=== PATIENT | male | born 1950 | race Caucasian/White ===

== ENCOUNTER 2018-06-29 23:50 | Emergency (ER) | payer OTHER, MEDICARE, BC ==
[2018-06-30] MEDS ORDERED: DIPH,PERTUS(ACELL)TETVAC-LF 0.5 ML VIAL IM ONE (00:06)
[2018-06-30] MEDS ORDERED: SODIUM CHLORIDE 0.9% 500 ML 500 ML IV STA (00:06)
[2018-06-30 00:14] LABS: Glucose,Whole Blood 119 mg/dL (75-99)
[2018-06-30 00:15] VITALS: BP 156/98; PULSE 80; RESP 21; TEMP 97.3
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
[2018-06-30 00:40] LABS: Basophils # (A) 0.1 k/uL (0-0.2); Basophils % (A) 1 %; Eosinophils # (A) 0.4 k/uL (0-0.7); Eosinophils % (A) 4 %; HCT 40.1 % (39.0-53.0); HGB 14.1 gm/dL (13.0-17.5); Lymphocytes # (A) 3.7 k/uL (1.0-4.8); Lymphocytes % (A) 38 %; MCH 34.6 pg (25.0-35.0); MCHC 35.1 g/dL (31.0-37.0); MCV 98.5 fL (80.0-100.0); Mean Platelet Volume 6.4; Monocytes # (A) 0.5 k/uL (0-1.0); Monocytes % (A) 5 %; Neutrophils # (A) 4.8 k/uL (1.3-7.7); Neutrophils % (A) 49 %; Platelet Count 447 k/uL (150-450); RBC 4.08 m/uL (4.30-5.90); RDW 12.5 % (11.5-15.5); WBC 9.8 k/uL (3.8-10.6)
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
[2018-06-30 00:51] LABS: ALT 35 U/L (21-72); AST 38 U/L (17-59); Albumin 4.2 g/dL (3.5-5.0); Alkaline Phosphatase 51 U/L (38-126); Amylase 59 U/L (30-110); Anion Gap 10 mmol/L; Blood Urea Nitrogen 13 mg/dL (9-20); Calcium 8.8 mg/dL (8.4-10.2); Carbon Dioxide 24 mmol/L (22-30); Chloride 104 mmol/L (98-107); Glucose 109 mg/dL (74-99); Lipase 123 U/L (23-300); Potassium 4.4 mmol/L (3.5-5.1); Sodium 138 mmol/L (137-145); Total Bilirubin 0.7 mg/dL (0.2-1.3)
[2018-06-30 00:54] LABS: Alcohol 194 mg/dL
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
[2018-06-30 01:09] LABS: Partial Thromboplastin Time 22.3 sec (22.0-30.0); Prothrombin Time 11.1 sec (9.0-12.0)
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
[2018-06-30 01:15] LABS: Creatine Kinase 517 U/L (55-170)
[2018-06-30 01:28] LABS: Creatine Kinase MB 7.4 ng/mL (0.0-2.4); Troponin I <0.012 ng/mL (0.000-0.034)
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
== END 2018-06-30 02:21 | disposition other institution (70) ==
LOC: EC 23:50
DX: R20.2 Paresthesia of skin (principal); M79.602 Pain in left arm; M79.601 Pain in right arm; S00.81XA Abrasion of other part of head, initial encounter; S00.01XA Abrasion of scalp, initial encounter; Z88.5 Allergy status to narcotic agent; Z88.6 Allergy status to analgesic agent; Z98.1 Arthrodesis status; V48.5XXA Car driver injured in noncollision transport accident in traffic accident, initial encounter; Y92.410 Unspecified street and highway as the place of occurrence of the external cause
CPT/HCPCS: 36415; 86900; 86901; 80053; 82150; 82550; 82553; 83605; 83690; 84484; 85025; 85610; 85730; 86850; 80320; 72170; 71045; 72125; 70486; 70450; 71260; 74177; 99285; Q9967

== ENCOUNTER → 2019-05-24 | Outpatient (CLI) | payer OTHER, MEDICARE, BC ==
--- NOTE | 2019-05-24 15:15 | MR ---
EXAMINATION TYPE: MR shoulder LT wo con DATE OF EXAM: 05/24/2019 COMPARISON: None HISTORY: Left shoulder pain TECHNIQUE: Multiplanar, multisequence imaging of the none shoulder is performed without contrast. FINDINGS: The exam is nondiagnostic given uncontrollable spasms. Prior rotator cuff repair surgical a nchors are seen. Small left joint effusion is present. Fluid is seen above the humeral head and the a cromio humeral interval suggesting full-thickness re-tear however the rotator cuff is not clearly vis ualized. Osteophytes are seen of the glenohumeral joint and there is a high riding humerus. Osteophyt es are also seen of the acromioclavicular joint. IMPRESSION: Overall nondiagnostic exam secondary to uncontrollable spasms and extensive patient motio n. Repeat imaging could be performed with sedation if necessary. Fluid in the acromioclavicular inter tequila and high riding left humeral head to suggest full-thickness re-tear as there are humeral anchors from prior rotator cuff repair.
--- NOTE | 2019-05-24 15:29 | MR ---
EXAMINATION TYPE: MR shoulder RT wo con DATE OF EXAM: 05/24/2019 COMPARISON: None HISTORY: Right shoulder pain TECHNIQUE: Multiplanar, multisequence imaging of the right shoulder is performed without contrast. FINDINGS: The exam is markedly limited secondary to patient motion. Rotator Cuff: There is a high riding humeral head secondary to complete tear of the supraspinatus. Re traction of the supraspinatus is measured at 4.5 cm and there is some muscular atrophy. Muscular atro phy is also seen of the infraspinatus with the anterior fibers infraspinatus also appear grossly torn however mid fibers and posterior fibers appear intact. Teres minor appears intact. There appears to be complete tear of the subscapularis with retraction of approximately 3 cm. Acromioclavicular Joint: Moderate acromioclavicular arthropathy with capsular hypertrophy and margina l osteophytes. These appear downsloping. Glenohumeral Joint: High right humeral head and marginal osteophytes of the glenohumeral joint with c hondral irregularity. Moderate arthropathy. Labrum: Markedly limited due to patient motion. At least global degeneration. Biceps Tendon: The long head of biceps is in normal location within bicipital groove. Suboptimal visu alization of the intra-articular portion. Bone marrow signal: No focal abnormal marrow signal is appreciated. Other: Small joint effusion. IMPRESSION: Marked limited evaluation given extensive patient motion. 1. Given the limitations there is a complete tear of the supraspinatus with high right humeral head. Muscular atrophy is seen and 4.5 cm retraction is noted. 2. Full-thickness tear of the anterior fibers of infraspinatus, suboptimally viewed given extensive m otion. Mid and posterior fibers appear intact. 3. Complete tear of the subscapularis with 3 cm retraction. 4. Moderate acromioclavicular arthropathy, moderate glenohumeral arthropathy, small joint effusion, a nd at least global degeneration of the labrum.
== END | disposition home or self-care (01) ==
LOC: RADMRIMAIN 11:01
PROVIDERS: ATTEND Physical Medicine & Rehabilitation
DX: M25.512 Pain in left shoulder (principal); S43.422D Sprain of left rotator cuff capsule, subsequent encounter

== ENCOUNTER → 2021-01-13 | Outpatient (CLI) | payer OTHER ==
--- NOTE | 2021-01-13 13:09 | XR ---
EXAMINATION TYPE: XR cervical spine w flex/ext DATE OF EXAM: 01/13/2021 COMPARISON: CT scan 06/30/2018 HISTORY: Postop TECHNIQUE: Frontal and lateral, bilateral oblique, flexion extension lateral views and odontoid views submitted. FINDINGS: Extensive postsurgical changes are seen. Odontoid view is suboptimal. Extensive fusion involving the cervical thoracic junction. Cannot exclude an anterolisthesis at the cervical thoracic junction appea rs to been present on the prior CT scan of 06/30/2018. Suspect multilevel bilateral foraminal encroac hment. IMPRESSION: 1. Limited exam particularly at the cervical thoracic junction demonstrates extensive postsurgical ch anges with suspected foraminal encroachment at multiple levels. Recommend follow-up CT scan.
== END | disposition home or self-care (01) ==
LOC: RADXRMAIN 12:15
PROVIDERS: ATTEND Neurological Surgery
DX: Z47.89 Encounter for other orthopedic aftercare (principal); Z98.1 Arthrodesis status
CPT/HCPCS: 72052

== ENCOUNTER 2021-03-06 15:52 | Emergency (ER) | payer OTHER, BC, MEDICARE ==
[2021-03-06 16:07] VITALS: BP 133/71; PULSE 71; RESP 18; TEMP 98.2
--- NOTE | 2021-03-06 17:07 | XR ---
EXAMINATION TYPE: XR humerus RT DATE OF EXAM: 03/06/2021 COMPARISON: NONE HISTORY: Pain TECHNIQUE: 4 views FINDINGS: There is right shoulder prosthesis. Components appear in good position. There is spiral fracture of the mid shaft of the humerus. There is fairly normal alignment of the fr agments. There is separation up to 14 mm of the fragments distally. The elbow joint is not well seen but appears grossly intact. IMPRESSION: Acute spiral fracture of the mid shaft of the humerus.
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
--- NOTE | 2021-03-06 18:26 | ED ---
Upper Extremity HPI - General Chief Complaint: Extremity Injury, Upper Stated Complaint: PostOP/Rt Shoulder Injury Time Seen by Provider: 03/06/21 17:41 Source: patient, family Mode of arrival: wheelchair - History of Present Illness Initial Comments: 70-year-old male patient presents to the emergency department today for evaluation of right upper arm pain after a fall. Patient states he was coming down the stairs backwards missed the last step and fell. Patient states he braced himself with his right arm causing injury. Denies hitting his head or losing consciousness. Denies any neck or back pain. 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 Quigley. Patient states he is not having any new numbness or tingling to the arm. Patient denies any headache, chest pain, shortness of breath, dizziness, weakness, abdominal pain, nausea, vomiting, or difficulties with bowel movements or urination. Does not take any blood thinning medications. - Related Data Allergies Allergy/AdvReac Type Severity Reaction Status Date / Time acetaminophen [From Vicodin] Allergy Unknown Verified 03/06/21 16:07 hydrocodone [From Vicodin] Allergy Unknown Verified 03/06/21 16:07 Review of Systems ROS Statement: Those systems with pertinent positive or pertinent negative responses have been documented in the HPI. ROS Other: All systems not noted in ROS Statement are negative. Past Medical History Past Medical History: Hypertension Additional Past Medical History / Comment(s): restless leg syndrome History of Any Multi-Drug Resistant Organisms: None Reported Past Surgical History: Joint Replacement Additional Past Surgical History / Comment(s): colonoscopy, rt shoulder Past Psychological History: No Psychological Hx Reported Smoking Status: Never smoker Past Alcohol Use History: Occasional Past Drug Use History: None Reported General Exam General appearance: alert, in no apparent distress, other (Physical well-de veloped, well-nourished adult male patient in no acute distress. Vital signs upon presentation are temperature 98.2F, pulse 71, respirations 18, blood pressure 133/71, pulse ox 97% on room air.) ENT exam: Present: normal exam, normal oropharynx, mucous membranes moist Neck exam: Present: normal inspection, full ROM, other (Nontender, no step-off, no deformity to firm midline palpation of the posterior cervical spine. Full range of motion without pain or limitation.). Absent: tenderness, meningismus, lymphadenopathy Respiratory exam: Present: normal lung sounds bilaterally. Absent: respiratory distress, wheezes, rales, rhonchi, stridor Cardiovascular Exam: Present: regular rate, normal rhythm, normal heart sounds. Absent: systolic murmur, diastolic murmur, rubs, gallop, clicks GI/Abdominal exam: Present: soft, normal bowel sounds. Absent: distended, tenderness, guarding, rebound, rigid Extremities exam: Present: full ROM, tenderness (Right Upper arm), normal capillary refill, other (Skin to the right arm is pink, warm, dry. Cap refill less than 3 seconds. Radial pulses 2+.). Absent: pedal edema, joint swelling, calf tenderness Neurological exam: Present: alert, oriented X3, CN II-XII intact Psychiatric exam: Present: normal affect, normal mood Skin exam: Present: warm, dry, intact, normal color. Absent: rash Course Vital Signs 03/06/21 16:02 Temperature 98.2 F Pulse Rate 71 Respiratory 18 Rate Blood Pressure 133/71 O2 Sat by Pulse 97 Oximetry - Reevaluation(s) Reevaluation #1: 03/06/21 18:26 Patient refused pain medication multiple times throughout visit. Stated he was not having any pain unless he moves the arm. States he has percocet at home he would rather take. Medical Decision Making - Medical Decision Making 70-year-old male patient presents to the emergency department today for evaluation of right arm pain after a fall. Physical examination did reveal tenderness over the right upper arm. Neurovascular status is intact to the right arm. X-rays were obtained and did show an acute spiral fracture of the right midshaft humerus. I did call the patient's orthopedic office [facility] spoke to a Dr. Hudson (spelling may be incorrect). He recommends p lacing patient in a sling. Make sure he remains nonweightbearing to the arm. He is instructed to call the office Tuesday for an appointment. I did discuss this plan with the patient. He does have pain medication at home to get him through the weekend. Return parameters were discussed in detail. He verbalizes understanding and agrees with this plan. My attending is Dr. Antoine. - Radiology Data Radiology results: report reviewed, image reviewed 4 views of the right shoulder obtained. Report reviewed in its entirety. Impression by Dr. Leach shows no acute abnormality of the right shoulder. 4 views of the right humerus are obtained. Report was reviewed in its entirety. Impression by Dr. Leach shows acute spiral fracture of the midshaft of the humerus. Right shoulder prosthesis opponents appear in good position. Disposition Clinical Impression: Right humeral fracture Disposition: HOME SELF-CARE Condition: Good Instructions (If sedation given, give patient instructions): Arm Fracture in Adults (ED) Additional Instructions: Use sling, do not bear weight on the arm. Apply ice 20 minutes at a time at least 4-5 times daily. Take home pain medication as directed. Call your emission specialist Tuesday morning for an appointment. Return for any new, worsening, or concerning symptoms. Is patient prescribed a controlled substance at d/c from ED?: No Referrals: Noel Ruiz MD [Primary Care Provider] - 1-2 days
== END 2021-03-06 18:35 | disposition home or self-care (01) ==
LOC: EC 15:52
DX: S42.341A Displaced spiral fracture of shaft of humerus, right arm, initial encounter for closed fracture (principal); I10 Essential (primary) hypertension; W10.9XXA Fall (on) (from) unspecified stairs and steps, initial encounter
CPT/HCPCS: 99284

== ENCOUNTER → 2022-02-24 | Outpatient (CLI) | payer OTHER ==
--- NOTE | 2022-02-24 12:19 | XR ---
EXAMINATION TYPE: XR cervical spine limited DATE OF EXAM: 02/24/2022 COMPARISON: 01/13/2021 HISTORY: Postsurgical change. TECHNIQUE: 4 views submitted. FINDINGS: Evaluation of the lower cervical spine nondiagnostic due to overlapping positioning. Od[place] id grossly intact. Visualized portions of the cervical spine demonstrates postsurgical change in haritha lar alignment relative to the prior exam. IMPRESSION: Limited assessment of lower cervical spine with remaining portion appearing stable relati ve to the prior exam.
== END | disposition home or self-care (01) ==
LOC: RADXRMAIN 11:55
PROVIDERS: ATTEND Neurological Surgery
DX: S14.129A Central cord syndrome at unspecified level of cervical spinal cord, initial encounter (principal)
CPT/HCPCS: 72040

== ENCOUNTER → 2022-03-15 | Outpatient (CLI) | payer MEDICARE ==
[2022-03-15 18:27] LABS: Basophils # (A) 0.06 X 10*3/uL (0.00-0.10); Basophils % (A) 0.6 %; Eosinophils # (A) 0.15 X 10*3/uL (0.04-0.35); Eosinophils % (A) 1.5 %; HCT 40.9 % (39.6-50.0); HGB 14.4 g/dL (13.0-17.0); Immature Grans, Automated 0.7 %; Lymphocytes % (A) 27.1 %; MCHC 35.2 g/dL (32.0-37.0); MCV 96.7 fL (80.0-97.0); Mean Platelet Volume 8.8 fL (9.5-12.2); Monocytes # (A) 0.93 X 10*3/uL (0.20-1.00); Monocytes % (A) 9.3 %; NRBC Per 100 WBC 0 /100 WBCS (0.0-0.0); Neutrophils # (A) 6.04 X 10*3/uL (1.80-7.70); Neutrophils % (A) 60.8 %; Platelet Count 579 X 10*3/uL (140-440); RBC 4.23 X 10*6/uL (4.40-5.60); RDW 13.2 % (11.5-14.5); WBC 9.95 X 10*3/uL (4.50-10.00)
== END | disposition home or self-care (01) ==
LOC: LABPAT 12:49
PROVIDERS: ATTEND Surgery
DX: Z01.812 Encounter for preprocedural laboratory examination (principal); K40.90 Unilateral inguinal hernia, without obstruction or gangrene, not specified as recurrent
CPT/HCPCS: 36415; 85025; 93005

== ENCOUNTER 2022-03-19 09:32 | Day surgery (SDC) | payer BC, MEDICARE ==
[2022-03-18 09:27] VITALS: BMI 25.1
[~2022-03-19 09:32] MED LIST: ACETAMINOPHEN TAB 500 MG TAB PO PRN; DEXAMETHASONE SOD PHOSPHATE 4 MG/ML 1 ML VIAL IV ONE; HEPARIN SODIUM,PORCINE/PF 5,000 UNIT/0.5 ML SYRINGE SQ PRN; LACTATED RINGERS 1,000 ML IV SCH; MIDAZOLAM 2 MG/2 ML VIAL IV PRN; ONDANSETRON 4 MG/2 ML VIAL IVP ONE; fentaNYL (PF) 50 MCG/ML 2 ML AMP IV PRN
[2022-03-19 10:11] VITALS: RESP 16
[2022-03-19] MEDS ORDERED: TAMSULOSIN 0.4 MG CAP.ER.24H PO ONE (11:16)
[2022-03-19] MEDS ORDERED: GLYCOPYRROLATE 0.2 MG/ML 2 ML VIAL ONE (11:49)
[2022-03-19] MEDS ORDERED: MIDAZOLAM 2 MG/2 ML VIAL ONE (11:49)
[2022-03-19] MEDS ORDERED: HYDROmorphone (PF) 1 MG/ML ONE (11:49)
[2022-03-19] MEDS ORDERED: PROPOFOL 10 MG/ML 20 ML VIAL IV ONE (11:49)
[2022-03-19] MEDS ORDERED: ROCURONIUM 10 MG/ML (5 ML VIAL) IV ONE (11:49)
[2022-03-19] MEDS ORDERED: fentaNYL (PF) 50 MCG/ML 2 ML AMP ONE (11:49)
[2022-03-19] MEDS ORDERED: SUCCINYLCHOLINE CHLORIDE 200 MG/10 ML VIAL IV ONE (11:49)
[2022-03-19] MEDS ORDERED: LIDOCAINE 2% INJ 20 MG/ML (2 ML VIAL) ONE (11:49)
[2022-03-19] MEDS ORDERED: LACTATED RINGERS 1,000 ML IV ONE ×3 (11:54→14:31)
[2022-03-19] MEDS ORDERED: BUPIVACAIN-EPI 0.25%-1:200,000 30 ML VIAL SQ ONE (12:19)
--- NOTE | 2022-03-19 13:56 | P.OP ---
Date of Procedure: 03/19/22 Procedure(s) Performed: PREOPERATIVE DIAGNOSIS: Right inguinal hernia POSTOPERATIVE DIAGNOSIS: Same PROCEDURE: Laparoscopic da Richard assisted repair right inguinal hernia with mesh SURGEON: Dr. Trevino ANESTHESIA: General OPERATIVE PROCEDURE DETAILS: Patient was placed in the operating table in the supine position. The patient was placed under general anesthesia. The abdomen was prepped and draped in usual sterile fashion. A small curvilinear supraumbilical incision was made. The fascia was retracted anteriorly with Russel forceps. The Veress needle was inserted. The saline drop test was normal. Insufflation took place to 15 mmHg. An 8 mm trocar was placed into the peritoneal cavity. 2 additional 8 mm trochars were placed in the right upper quadrant and left upper quadrant under visualization. The robotic arms were then brought in and docked into place. The fenestrated bipolar was used in the left arm and the laparoscopic bunny was utilized in the right arm. A 30 8 mm scope was used in the up position. The peritoneal cavity was inspected. The patient had a moderate to large indirect inguinal hernia on the right-hand side. There was no hernia seen on the left. The peritoneum was incised in a horizontal fashion cephalad to the internal inguinal ring. Following that caref ul dissection of the preperitoneal space took place. This took place using both electrocautery, sharp dissection but primarily blunt dissection. Visualization of the pubic tubercle and Sridhar's ligament took place medially. Full dissection took place laterally as well. The hernia sac was fully dissected. Once we had adequate space the extra-large Bard 3-D mid mesh was advanced into the preperitoneal space and flattened out appropriately to cover all potential hernia sites. No sutures were used. The peritoneal defect was then closed using a absorbable 2-0 VLok suture. The hernia sac was incorporated into the peritoneal closure to help prevent future recurrence. The pneumoperitoneum was then evacuated. The skin of all 3 sites was closed using a 4-0 Monocryl stitch. Skin glue was then applied. TYPE OF MESH USED: Bard 3-D mid extra-large LOCATION OF MESH: Preperitoneal FIXATION: None PREOPERATIVE DISCUSSION ON SMOKING CESSASTION: Yes PREOPERATIVE DISCUSSION ON MORBID OBESITY: Yes PREOPERATIVE DISCUSSION ON APPROPRIATE USE OF NARCOTIC USE: Yes PREOPERATIVE EDUCATION: Multi Modal, Smoking Cessation and Weight Loss with BMI over 35. DISPOSITION: Stable to recovery room
[2022-03-19] MEDS ORDERED: IBUPROFEN 600 MG TAB PO SCH (14:00)
[2022-03-19 14:07] VITALS: TEMP 97.4
[2022-03-19] MEDS ORDERED: HYDROmorphone 0.5 MG/0.5 ML SYRINGE IVP ONE (14:15)
[2022-03-19] MEDS ORDERED: KETOROLAC 15 MG/ML 1 ML VIAL IVP ONE (14:17)
[2022-03-19] MEDS ORDERED: traMADol 50 MG TAB ONE (15:21)
[2022-03-19] MEDS ORDERED: traMADol 50 MG TAB PO ONE (15:23)
[2022-03-19 15:50] VITALS: BP 132/74; PULSE 60
[2022-03-19] MEDS ORDERED: ACETAMINOPHEN TAB 325 MG TAB PO SCH (16:00)
== END 2022-03-19 16:49 | disposition home or self-care (01) ==
LOC: OR 09:32
PROVIDERS: ATTEND Surgery
DX: K40.90 Unilateral inguinal hernia, without obstruction or gangrene, not specified as recurrent (principal); G25.81 Restless legs syndrome; Z88.8 Allergy status to other drugs, medicaments and biological substances; Z88.5 Allergy status to narcotic agent; Z79.899 Other long term (current) drug therapy
CPT/HCPCS: 49650; 86900; 86901; 86850; C1781; J2250; J0330; J1100; J0690; J2405; J3010; J1170 ×2; J1885; J2704; J1644; J2001

== ENCOUNTER 2022-03-19 21:55 | Emergency (ER) | payer MEDICARE ==
[2022-03-19 22:13] VITALS: BP 147/82; PULSE 83; RESP 18; TEMP 98.2
--- NOTE | 2022-03-20 01:59 | ED ---
Male Urogenital HPI - General Chief complaint: Urogenital Stated complaint: Post-op complications Time Seen by Provider: 03/20/22 01:58 Source: patient, RN notes reviewed Mode of arrival: wheelchair Limitations: no limitations - History of Present Illness Initial comments: This is a 71-year-old male who presents to the emergency department for urinary retention. Patient had a right inguinal hernia repair with Dr. Trevino today. He was given the option of being discharged with a Edouard catheter, however he initially declined. Since the patient arrived home around 5 PM he has been unable to urinate. Patient states that he would now like a Edouard catheter placed and will plan to have it removed when he follows up with Dr. Trevino on 03/24. Not currently experiencing abdominal pain or any other symptoms. Denies any fevers, chills, sore throat, cough, dyspnea, chest pain, palpitations, abdominal pain, nausea, vomiting, diarrhea, back pain, or headaches. MD Complaint: other (urinary retention) - Related Data Home Medications Medication Instructions Recorded Confirmed Baclofen [Lioresal] 20 mg PO 1200 03/18/22 03/19/22 Baclofen [Lioresal] 30 mg PO DAILY 03/18/22 03/19/22 Baclofen [Lioresal] 40 mg PO HS 03/18/22 03/19/22 Cholecalciferol [Vitamin D3 (25 25 mcg PO DAILY 03/18/22 03/19/22 Mcg = 1000 Iu)] Multivitamins, Thera [Multivitamin 1 tab PO DAILY 03/18/22 03/19/22 (formulary)] Tamsulosin [Flomax] 0.4 mg PO HS 03/18/22 03/19/22 rOPINIRole HCL [Requip] 0.5 mg PO HS 03/18/22 03/19/22 tiZANidine [Zanaflex] 4 mg PO BID 03/18/22 03/19/22 Previous Rx's Medication Instructions Recorded traMADol HCl [Ultram] 50 mg PO Q6H PRN #6 tab 03/19/22 Allergies Allergy/AdvReac Type Severity Reaction Status Date / Time hydrocodone [From Vicodin] Allergy VERY HYPER Verified 03/19/22 22:14 FEELING , HALUCINATIONS lorazepam [From Ativan] Allergy SEVERE Verified 03/19/22 22:14 HYPER FEELING Review of Systems ROS Statement: Those systems with pertinent positive or pertinent negative responses have been documented in the HPI. ROS Other: All systems not noted in ROS Statement are negative. Past Medical History Past Medical History: Hypertension Additional Past Medical History / Comment(s): restless leg syndrome History of Any Multi-Drug Resistant Organisms: None Reported Past Surgical History: Joint Replacement Additional Past Surgical History / Comment(s): colonoscopy, rt shoulder Past Psychological History: No Psychological Hx Reported Smoking Status: Never smoker General Exam General appearance: alert, in no apparent distress Head exam: Present: atraumatic, normocephalic, normal inspection Respiratory exam: Present: normal lung sounds bilaterally. Absent: respiratory distress, wheezes, rales, rhonchi, stridor Cardiovascular Exam: Present: regular rate, normal rhythm, normal heart sounds. Absent: systolic murmur, diastolic murmur, rubs, gallop, clicks GI/Abdominal exam: Present: soft, normal bowel sounds. Absent: distended, te nderness, guarding, rebound, rigid Neurological exam: Present: alert, oriented X3, CN II-XII intact Psychiatric exam: Present: normal affect, normal mood Skin exam: Present: warm, dry, intact, normal color. Absent: rash Course Vital Signs 03/19/22 22:09 Temperature 98.2 F Pulse Rate 83 Respiratory 18 Rate Blood Pressure 147/82 O2 Sat by Pulse 95 Oximetry Medical Decision Making - Medical Decision Making This is a 71-year-old male who presents to the emergency department for urinary retention. Bladder scan was initially 300 mL, however it was shown to be incorrect when the Edouard catheter was placed, which initially drained out 600 mL. Patient discharged home with Edouard catheter as requested. Instructed him to follow up with Dr. Trevino as scheduled. Return precautions reviewed in depth, the patient is instructed to return to the emergency department with any new, worsening, or concerning symptoms. Patient verbalized understanding. This case was discussed in detail with the attending ED physician. Presentation, findings, and treatment plan discussed in detail as well. Disposition Clinical Impression: Urinary retention Disposition: HOME SELF-CARE Instructions (If sedation given, give patient instructions): Edouard Catheter Placement and Care (ED), Edouard Catheter Removal (DC), How to Change a Catheter Drainage Bag (DC) Additional Instructions: Return to the emergency department with any new, worsening, or concerning symptoms. Follow-up with Dr. Trevino as scheduled. Is patient prescribed a controlled substance at d/c from ED?: No Referrals: Noel Ruiz MD [Primary Care Provider] - 1-2 days
== END 2022-03-20 02:47 | disposition home or self-care (01) ==
LOC: EC 21:55
DX: R33.9 Retention of urine, unspecified (principal); I10 Essential (primary) hypertension; Z79.899 Other long term (current) drug therapy; Z88.5 Allergy status to narcotic agent; Z88.8 Allergy status to other drugs, medicaments and biological substances
CPT/HCPCS: 51701; 51702; 99283

== ENCOUNTER → 2024-05-18 | Outpatient (CLI) | payer MEDICARE ==
--- NOTE | 2024-05-18 15:38 | US ---
EXAMINATION TYPE: US venous doppler duplex LE LT DATE OF EXAM: 05/18/2024 2:29 PM COMPARISON: NONE CLINICAL INDICATION: Male, 74 years old with history of R22.42 MASS OR LUMP; edema at calf, Pain, Swe lling TECHNIQUE: The lower extremity deep venous system is examined utilizing real time linear array sonog gil with graded compression, color doppler sonography, and spectral doppler. SIDE PERFORMED: Left FINDINGS: VESSELS IMAGED: Common Femoral Vein Deep Femoral Vein Greater Saphenous Vein * Femoral Vein Popliteal Vein Small Saphenous Vein * Proximal Calf Veins Posterior tibial vein Peroneal vein (* superficial vessels) Left Leg: Negative for DVT IMPRESSION: No evidence for DVT within the left lower extremity [facility], , 05/18/2024 3:36 PM
== END | disposition home or self-care (01) ==
LOC: RADUSWWP 13:48
PROVIDERS: ATTEND Podiatrist Foot & Ankle Surgery
DX: R22.42 Localized swelling, mass and lump, left lower limb (principal)